=== PATIENT | female | born 1995 | race Caucasian/White ===

== ENCOUNTER 2016-11-25 07:54 | Emergency (ER) | payer OTHER ==
--- NOTE | ~2016-11-25 | CR63 ---
[facility], [place]. [facility] A Service of [facility] & [facility] RADIOLOGY TEXT RESULTS PATIENT: AUGUSTINE CARIAS LOCATION: SED : 93 UNIT #: [id number] AGE: [address]: Gene Preciado MD SEX: F ORDER DR: [id number] [address] [address] [id number] E MR#: [id number] Acc #: [id number] NAME: AUGUSTINE CARIAS : 1995 SEX: F STUDY DATE/TIME: 11/25/2016 9:20 UNIT: SED ROOM: STUDY DESCRIPTION: CR Chest 2 View Attending Physician: Gene Preciado M.D. Ordering Physician: Gene Preciado M.D. Primary Care Physician: Primary Care Physician No MEDICAL IMAGING REPORT This report is preliminary unless electronic signature is present. EXAM PA and lateral chest radiograph. HISTORY Cough and congestion for 10 days. FINDINGS PA and lateral views are obtained. The cardiovascular configuration of the chest is normal and the lungs are clear. CONCLUSION Negative chest. No active disease and no change from 03/03/2009. Dictated by... Isael Francisco M.D. THIS IS AN ELECTRONICALLY VERIFIED REPORT Isael Francisco M.D. at 11/25/2016 4:45 PM Jessica TD: 11/25/2016 13:20 JOB #: [id number] MEDICAL IMAGING REPORT
[~2016-11-25 07:54] MED LIST: ALBUTEROL INHALER INH; AUGMENTIN875 MG PO; CELEXA10 MG; FLUTICASONE SPRAY; LAMICTAL PO; LAMICTAL25 M1; LITHIUM CARBON450 MG PO; MOTRIN600 M1 PO; PAXIL10 MG PO; TYLENOL #3 PO; WELLBUTRIN PO
[2016-11-25 08:21] LABS: INFLUENZA A NEG (NEG); INFLUENZA B NEG (NEG)
[2017-04-14] MEDS ORDERED: NO MEDICATIONS (13:08)
[2017-04-17] MEDS ORDERED: OMEPRAZOLE20 M2 PO (14:24)
[2017-04-17] MEDS ORDERED: LOMOTIL WHITE2.5 M1 PO (14:25)
== END 2016-11-25 10:00 | disposition home or self-care (01) ==
LOC: SED 07:54
PROVIDERS: Emergency Medicine
DX: J20.9 Acute bronchitis, unspecified (principal); J01.10 Acute frontal sinusitis, unspecified; J01.00 Acute maxillary sinusitis, unspecified; J44.9 Chronic obstructive pulmonary disease, unspecified; F17.210 Nicotine dependence, cigarettes, uncomplicated
CPT/HCPCS: 71020; 87651; 87804; 94640; 99283

== ENCOUNTER 2017-01-03 17:18 | Emergency (ER) | payer OTHER ==
[2017-04-14] MEDS ORDERED: NO MEDICATIONS (13:08)
[2017-04-17] MEDS ORDERED: OMEPRAZOLE20 M2 PO (14:24)
[2017-04-17] MEDS ORDERED: LOMOTIL WHITE2.5 M1 PO (14:25)
== END 2017-01-03 17:45 | disposition home or self-care (01) ==
LOC: SED 17:18
DX: S29.012A Strain of muscle and tendon of back wall of thorax, initial encounter (principal); F17.210 Nicotine dependence, cigarettes, uncomplicated; F31.9 Bipolar disorder, unspecified; Z79.899 Other long term (current) drug therapy; X58.XXXA Exposure to other specified factors, initial encounter; Y92.9 Unspecified place or not applicable
CPT/HCPCS: 99283

== ENCOUNTER 2017-01-07 00:54 | Emergency (ER) | payer OTHER ==
--- NOTE | ~2017-01-07 | CR4 ---
[facility]. [facility] A Service of [facility] & [facility] RADIOLOGY TEXT RESULTS PATIENT: AUGUSTINE CARIAS LOCATION: SED : 93 UNIT #: [id number] AGE: [address]: Beverley Cabrera MD SEX: F ORDER DR: [id number] [address] [address] [id number] E MR#: [id number] Acc #: [id number] NAME: AUGUSTINE CARIAS : 1995 SEX: F STUDY DATE/TIME: 01/07/2017 2:23 UNIT: SED ROOM: STUDY DESCRIPTION: CR Abdomen Flat Upright or Dec Attending Physician: Beverley Cabrrea M.D. Ordering Physician: Beverley Cabrera M.D. Primary Care Physician: No Primary Care Physician MEDICAL IMAGING REPORT This report is preliminary unless electronic signature is present. EXAM Abdomen flat and upright INDICATIONS Abdominal pain starting 2 days ago. A flat and upright view of the abdomen were obtained. The bowel gas pattern is normal. The bones are unremarkable. There is no free air. IMPRESSION Normal flat and upright abdomen Dictated by... Gene Kim M.D. THIS IS AN ELECTRONICALLY VERIFIED REPORT Gene Kim M.D. at 01/08/2017 12:28 AM ZAYRA/sesar TD: 01/07/2017 22:54 JOB #: [id number] MEDICAL IMAGING REPORT Page 1 of 1
[2017-01-07 01:09] LABS: BASOPHIL# 0.1 X10e3 (0-0.3); BASOPHIL% 0.8 % (0-2.5); EOSINOPHIL# 0.3 X10e3 (0-0.7); EOSINOPHIL% 3.5 % (0.0-7.0); HEMATOCRIT 36.2 % (35.0-45.0); HEMOGLOBIN 12.4 gm/dL (12.0-16.0); LYMPHOCYTE# 3.7 X10e3 (1.0-3.5); LYMPHOCYTE% 37.1 % (17.0-45.0); MEAN CELL VOLUME 90.8 FL (83-96); MEAN CORPUSCULAR HEMOGLOBIN 31.1 PG (28-34); MEAN CORPUSCULAR HGB CONC 34.2 g/dL (30-36); MEAN PLATELET VOLUME 7.1 FL (6.5-11.5); MONOCYTE% 10.4 % (3.0-12.0); NEUTROPHIL# 4.8 X10e3 (1.5-7.1); NEUTROPHIL% 48.2 % (40-75); PLATELET COUNT 337 X10e3 (140-420); RED BLOOD COUNT 3.99 X10e (3.90-5.30); RED CELL DISTRIBUTION WIDTH 14.3 % (11.0-15.5); WHITE BLOOD COUNT 9.9 X10e3 (4.0-10.5)
[2017-01-07 01:11] LABS: DIFF IND NO
[2017-01-07 01:12] LABS: URINE SOURCE CLEAN CATCH
[2017-01-07 01:14] LABS: URINE APPEARANCE CLEAR; URINE BILIRUBIN NEG (NEG); URINE BLOOD NEG (NEG); URINE COLOR YELLOW; URINE GLUCOSE NEG (NORM); URINE KETONE NEG (NEG); URINE LEUKOCYTE ESTERASE NEG (NEG); URINE NITRATE NEG (NEG); URINE PH 5.5 (5-8); URINE PROTEIN NEG (NEG); URINE SPECIFIC GRAVITY 1.025 (1.003-1.035); URINE UROBILINOGEN 0.2 MG/DL (NORM)
[2017-01-07 01:16] LABS: MICRO INDICATED? NO
[2017-01-07 01:30] LABS: ALBUMIN SERUM 3.7 g/dL (3.5-5.0); ALKALINE PHOSPHATASE 61 U/L (32-92); ALT (SGPT) 11 U/L (10-40); AST (SGOT) 14 U/L (10-42); BILIRUBIN, DIRECT <0.1 mg/dL (0.0-0.2); BILIRUBIN,INDIRECT 0.3 mg/dL (0.0-0.9); BILIRUBIN,TOTAL 0.4 mg/dL (0.2-2.0); BLOOD UREA NITROGEN 7 mg/dL (9-23); BUN/CREATININE RATIO 11.66; CALCIUM SERUM 8.5 mg/dL (8.4-10.2); CARBON DIOXIDE 23 mmol/L (22-31); CHLORIDE 109 mmol/L (100-111); CREATININE SERUM 0.6 mg/dL (0.6-1.4); GLOM FILT RATE Estimated 128.5 mL/min (>60); GLUCOSE FASTING 102 mg/dL (70-110); LIPASE 29 U/L (22-51); POTASSIUM 3.4 mmol/L (3.5-5.1); PROTEIN TOTAL SERUM 6.3 g/dL (6.0-8.3); SODIUM 138 mmol/L (135-145)
[2017-04-14] MEDS ORDERED: NO MEDICATIONS (13:08)
[2017-04-17] MEDS ORDERED: OMEPRAZOLE20 M2 PO (14:24)
[2017-04-17] MEDS ORDERED: LOMOTIL WHITE2.5 M1 PO (14:25)
== END 2017-01-07 03:20 | disposition home or self-care (01) ==
LOC: SED 00:54
PROVIDERS: Emergency Medicine
DX: K29.70 Gastritis, unspecified, without bleeding (principal); F31.9 Bipolar disorder, unspecified; F17.210 Nicotine dependence, cigarettes, uncomplicated; E07.9 Disorder of thyroid, unspecified
CPT/HCPCS: 36415; 74020; 80048; 80076; 81003; 83690; 84703; 85025; 99284

== ENCOUNTER 2017-01-17 16:27 | Emergency (ER) | payer OTHER ==
[2017-04-14] MEDS ORDERED: NO MEDICATIONS (13:08)
[2017-04-17] MEDS ORDERED: OMEPRAZOLE20 M2 PO (14:24)
[2017-04-17] MEDS ORDERED: LOMOTIL WHITE2.5 M1 PO (14:25)
== END 2017-01-17 16:53 | disposition home or self-care (01) ==
LOC: SED 16:27
DX: L03.116 Cellulitis of left lower limb (principal); F17.210 Nicotine dependence, cigarettes, uncomplicated; F31.9 Bipolar disorder, unspecified
CPT/HCPCS: 99282

== ENCOUNTER → 2017-04-17 | Day surgery (SDC) | payer OTHER ==
[~2017-04-17] MED LIST changes: +LOMOTIL WHITE2.5 M1 PO; +NO MEDICATIONS; +OMEPRAZOLE20 M2 PO
--- NOTE | ~2017-04-17 | OR ---
Unit #: [id number] #: [id number] Patient: AUGUSTINE CARIAS [id number] [address] [address] [id number] O MR#: [id number] NAME: AUGUSTINE CARIAS ROOM: Date of Procedure: 04/17/2017 Admission Date: 04/17/2017 Surgeon: Gabriel Medrano M.D. : 1995 Attending Physician: Gabriel Medrano M.D. Primary Care Physician: Mark Armas M.D. OPERATIVE REPORT PRIMARY CARE PHYSICIAN Mark Armas M.D. PREOPERATIVE DIAGNOSES Dyspepsia and epigastric pain as well as chronic non-bloody watery diarrhea. PROCEDURES PERFORMED Upper gastrointestinal endoscopy with biopsy as well as colonoscopy with biopsies. POSTOPERATIVE DIAGNOSES For upper endoscopy: 1. The patient has grade 1 to 2 erosive distal esophagitis, otherwise examination was normal up to third part of duodenum. Biopsy was obtained from the antrum for CLOtest. In addition, biopsies were also obtained from deep descending duodenal folds to look for any evidence of partial villous atrophy or celiac disease. For colonoscopy: 1. Completely normal examination up to cecum and terminal ileum. The quality of the prep was excellent. Multiple random colonic biopsies were obtained from throughout the colon to rule out microscopic or collagenous colitis. RECOMMENDATIONS 1. Omeprazole 40 mg p.o. daily. 2. P.r.n. Lomotil 2.5 mg. 3. Follow up the results of biopsies. The patient will be followed up in the office in 3 months' time. SEDATION USED MAC. DESCRIPTION OF PROCEDURE Following detailed explanation of the potential risks and complications of upper endoscopy and a colonoscopy, namely perforation, bleeding, and complications related to sedation, the patient was brought to GI lab and laid in the left lateral decubitus position. Lubricated tip of the Olympus video upper endoscope was passed through the bite block into the proximal esophagus under direct vision. The entire esophageal mucosa was examined and the patient was noted to have grade 1 to 2 distal erosive esophagitis. The scope was then advanced into the gastric cavity and the Unit #: [id number] #: [id number] Patient: AUGUSTINE CARIAS latter was insufflated. Mucosa of the fundus, body, and antrum was examined and appeared unremarkable. Pylorus was intubated with visualization of the normal duodenal bulb and second and third part of the duodenum. Biopsies were obtained from the deep descending duodenal folds to look for any evidence of partial villous atrophy or celiac disease. Upon withdrawal and retroflexion, incisura, cardia, and greater curve were examined and biopsy was obtained from the antrum for CLOtest. The scope was then withdrawn into the distal esophagus. The entire esophageal mucosa was examined all the way up to pharynx. No additional findings noted. The examination table was then turned by 180 degrees and the patient was positioned for a colonoscopy. A digital rectal examination was performed, which was normal. Lubricated tip of the Olympus video colonoscope was inserted through the anus and advanced under direct vision. The scope was advanced and passed up to sigmoid into descending colon. No diverticula were seen in this area. The scope tip was then navigated all the way up to cecum with visualization of the ileocecal valve and the appendiceal orifice. Preparation was excellent with good visualization and photodocumentation was obtained. Last several inches of the terminal ileum were also visualized after intubation of the ileocecal valve and appeared normal. Successive segments of the colonic mucosa were examined upon withdrawal and appeared unremarkable. There being no polyps, mass lesions, AVMs, or diverticula. The patient did not have any hemorrhoids at anal verge. The scope was then withdrawn. The patient returned to the recovery area. The patient tolerated the procedure without any postprocedure complications. Dictated by... Richy Gonzalez/alana TD: 04/19/2017 06:36 JOB #: [id number] OPERATIVE REPORT Page 1 of 1 X Gabriel Medrano MD X PROCEDURE OPERATIVE NOTE
== END | disposition home or self-care (01) ==
LOC: COPS 11:40
DX: K20.8 Other esophagitis (principal); R19.7 Diarrhea, unspecified; K21.9 Gastro-esophageal reflux disease without esophagitis; F17.210 Nicotine dependence, cigarettes, uncomplicated; Z98.890 Other specified postprocedural states
CPT/HCPCS: 84703; 87077; 88305; J2250

== ENCOUNTER 2017-04-27 17:48 | Inpatient (IN) | payer OTHER ==
[~2017-04-27] VITALS: Ht 160 cm; Wt 70.3 kg
--- NOTE | ~2017-04-27 | PN ---
Unit #: [id number] #: [id number] Patient: AUGUSTINE CONDON [id number] [facility] [address] [place] [address] [id number] I MR#: [id number] NAME: AUGUSTINE CONDON ROOM: [facility] Age: 21 Sex: F Admission Date: 04/28/2017 : 1995 Attending Physician: Manjit Randhawa M.D. Admitting Physician: Manjit Randhawa M.D. Primary Care Physician: Richy Blackburn PROGRESS NOTES DATE 04/30/2017 DISCUSSION Ms. Condon is a 21-year-old white female who was seen today and chart was reviewed and case was discussed with the staff. She has been doing fairly well and has been calm and cooperative and rather seclusive to herself and has been taking medications and tolerating them fairly well with no reported side effects. MENTAL STATUS EXAMINATION Young white female who was casually dressed with fair personal hygiene, appears to be in no acute distress or discomfort. She was awake and alert with intact orientation. Her mood was anxious with congruent affect. She denies any suicidal or homicidal ideations. Her insight and judgement remains slightly impaired. TREATMENT PLAN We will continue her on her current medications and treatment protocol and we will consider doing discharge planning tomorrow. Dictated by... Richy Boone/suhas TD: 05/02/2017 04:53 JOB #: [id number] PEARADHA PROGRESS NOTES Page 1 of 1 X Manjit Randhawa MD X PROGRESS NOTE
--- NOTE | ~2017-04-27 | HP ---
Unit #: [id number] #: [id number] Patient: AUGUSTINE CARIAS [id number] [place] [address] [id number] MR#: [id number] NAME: AUGUSTINE CARIAS ROOM: P262 Age: 21 Sex: F Admission Date: 04/28/2017 : 1995 Attending Physician: Manjit Randhawa M.D. Admitting Physician: Manjit Randhawa M.D. Primary Care Physician: Mark Armas M.D. HISTORY AND PHYSICAL HISTORY OF PRESENT ILLNESS Augustine is a 21 year old admitted to [address] [place] [address] with depression and verbalizing wanting to hurt herself. PAST MEDICAL HISTORY Irritable bowel syndrome. PAST SURGICAL HISTORY Adenoidectomy. ALLERGIES No known drug allergies. SOCIAL HISTORY Smokes 1 pack per day. Drinks alcohol on occasion. Denies illicit drug use. FAMILY HISTORY Medically noncontributory. REVIEW OF SYSTEMS CONSTITUTIONAL: No fever or chills. HEENT: Denies any sore throat, ear pain or runny nose. CARDIOVASCULAR: Denies chest pain, irregular heart rhythm or palpitations. CHEST: Denies shortness of breath or cough. No hemoptysis. GASTROINTESTINAL: Denies nausea, vomiting, diarrhea or chronic constipation. ENDOCRINE: Denies history of increased thirst or urination. No recent significant weight loss or gain. GENITOURINARY: Denies dysuria, frequency, or hematuria. SKIN: Denies any rashes. HEMATOLOGIC: Denies history of increased bleeding or bruising. MUSCULOSKELETAL: Denies any hot, swollen joints. No generalized muscle pain. NEUROLOGIC: Denies problems with vision or speech. No frequent, severe headaches. No numbness, tingling or weakness in any extremities. Denies loss of bladder or bowel control. CURRENT MEDICATIONS 1. Depakote 250 mg q.a.m., 500 mg q.h.s. 2. Risperdal 1 mg b.i.d. 3. Nicotine patch 14 mg daily. 4. Milk of Magnesia p.r.n. 5. Maalox p.r.n. Unit #: [id number] #: [id number] Patient: AUGUSTINE CARIAS 6. Tylenol p.r.n. PHYSICAL EXAMINATION GENERAL: Alert, well-nourished, in no apparent distress. VITAL SIGNS: Blood pressure 113/58, heart rate 80, respirations 16, temperature 98.6. WEIGHT: 155. HEIGHT: 5 feet 3 inches. SKIN: Warm and dry without rash or lesion. HEENT: Normocephalic. TMs not viewed. Oral and nasal passages clear. Conjunctivae clear. PERRLA. EOMs intact. NECK: Supple without lymphadenopathy or thyromegaly. HEART: Regular rate and rhythm without murmur. LUNGS: Clear. ABDOMEN: Soft, nontender. : Not done. EXTREMITIES: No evidence of cyanosis, clubbing or edema. Moves all without focal deficit. NEUROLOGICAL: Grossly within normal limits. Cranial Nerves: II: Visual black are intact. III, IV AND : Extraocular movements are intact. Pupils are equal, round and reactive to light. V: Facial sensation is grossly normal. VII: Facial movements and expression are normal. VIII: Auditory acuity grossly intact. IX, X: Uvula is midline. Phonation is normal. XI: Patient shrugs shoulders and turns head normally. XII: Tongue protrudes in the midline. Sensory and Motor Function: Sensory and motor sensation is grossly normal. Motor: moves all extremities well. Coordination: Gait is normal. Deep Tendon Reflexes: Intact. IMPRESSION Psychiatric admission. RECOMMENDATIONS PSYCHIATRIC: Per psychiatrist. MEDICAL: See no contraindication to participate in facility's activities. MEDICAL PROGNOSIS Good. MEDICAL CONDITION Stable. Dictated by... Francine Jama P.A.-C. for Richy Araya/hira TD: 04/28/2017 20:56 JOB #: [id number] Unit #: [id number] #: [id number] Patient: AUGUSTINE CARIAS HISTORY AND PHYSICAL Page 1 of 1 X Francine Jama HISTORY AND PHYSICAL
--- NOTE | ~2017-04-27 | PN ---
Unit #: [id number] #: [id number] Patient: AUGUSTINE CONDON [id number] [facility] [address] [place] [address] [id number] MR#: [id number] NAME: AUGUSTINE CONDON ROOM: [facility] Age: 21 Sex: F Admission Date: 04/28/2017 : 1995 Attending Physician: Manjit Randhawa M.D. Admitting Physician: Manjit Randhawa M.D. Primary Care Physician: Richy Blackburn PROGRESS NOTES DATE 04/29/2017 DISCUSSION Ms. Condon is a 21-year-old white female who was seen today and chart was reviewed and case was discussed with the staff. She has been anxious, withdrawn and rather seclusive to herself. Meanwhile, she Meanwhile, she has been taking medications and tolerating them fairly well with no reported side-effects. MENTAL STATUS EXAMINATION Young white female who is casually dressed with fair personal hygiene, appears to be in no acute distress or discomfort. She was awake and alert on interaction with intact orientation. Her mood was anxious with congruent affect. Her speech was slow and goal-directed. She denies any suicidal or homicidal ideations. . Her insight and judgement remains slightly impaired. TREATMENT PLAN 1. We will continue her on her current medications and treatment protocol. We will monitor her response to the medication and make further adjustments as needed. 2. We will continue to follow up. Dictated by... Richy Boone/suhas TD: 05/01/2017 03:49 JOB #: [id number] Unit #: [id number] #: [id number] Patient: AUGUSTINE CONDONRADHA PROGRESS NOTES Page 1 of 1 X Manjit Randhawa MD X PROGRESS NOTE
--- NOTE | ~2017-04-27 | PA ---
Unit #: [id number] #: [id number] [facility]: [facility]DON [id number] [facility] [address] [place] [address] [id number] I MR#: [id number] NAME: AUGUSTINE CONDON ROOM: P262 Age: 21 Sex: F Admission Date: 04/28/2017 : 1995 Date of Assessment: 04/28/2017 Attending Physician: Manjit Randhawa M.D. Admitting Physician: Manjit Randhawa M.D. Primary Care Physician: Mark Armas M.D. PSYCHIATRIC ASSESSMENT DATE OF SERVICE 04/28/2017. IDENTIFYING DATA Ms. Condon is a 21-year-old, single, white female, who is a resident of [place], [place], and was self-referred to the hospital, who was [facility], [facility] CHIEF COMPLAINT "I always have a general plan of suicide. I don't feel safe." HISTORY OF PRESENT ILLNESS Ms. Condon is a 21-year-old white female with a history of mood disorder, who was self referred to the hospital, reporting an increase in depression and suicidal ideation as she stated "I always have a general plan. I do not feel safe. I know I hate myself, part of me wants to ." The patient reports that she has been significantly distressed and was observed rubbing her legs with her forearm constantly and compulsively and became upset during assessment demanding to know if people outside could see her and was not sure if she was hearing voices or if it was her own thoughts and reported to have night terrors and was acutely psychotic with bizarre behavior, agitation, irritability, anxiety and difficulty remembering things and was seen to be a significant threat to herself and as such, recommendation for inpatient level of care for safety and stabilization was made and the patient was transferred to us. SUBSTANCE ABUSE HISTORY The patient reports regular use of cannabis and she reports that she has been using 2 blunts on a daily basis and the last use being yesterday. PAST PSYCHIATRIC HISTORY The patient has had a history of multiple inpatient psychiatric hospitalizations at [facility], where she has been diagnosed with bipolar disorder and currently she is not taking any treatment program, is not seeing a psychiatrist, and is not taking any psychotropic medications. PAST MEDICAL HISTORY Irritable bowel syndrome. ALLERGIES No known medication allergies. Unit #: [id number] #: [id number] Patient: AUGUSTINE CONDON CURRENT MEDICATIONS None. PERSONAL AND SOCIAL HISTORY A 21-year-old white female, who reports that she lives at home with her 3 sisters, an uncle and niece and has fairly decent social support system. MENTAL STATUS EXAMINATION Young white female, who was casually dressed with fair personal hygiene, appears to be in no acute distress or discomfort. She was awake and alert on interaction with intact orientation to time, place, and person. Her mood was anxious and depressed with a congruent affect. Her speech was slow and restricted in content. Her thought processes were disorganized with some looseness of associations and flight of ideas. Her insight and judgment remain significantly impaired. DIAGNOSTIC IMPRESSION Psychiatric: Bipolar disorder, most recent episode depressed, recurrent, moderate, with psychosis. Medical: None. Stressors: Moderate psychosocial stressors. TREATMENT PLAN 1. The patient has presented with a history of mood disorder and cannabis abuse, and has been decompensating and will need inpatient hospitalization for safety and stabilization. We will start her back on her home medications. We will adjust the medications and monitor response. 2. Supportive therapy was provided to the patient. 3. Safe, structured, and nourishing environment will be reported. ESTIMATED LENGTH OF STAY 5 to 7 days. ABILITY TO HELP SELF Limited. WILLINGNESS TO HELP SELF The patient appears to be willing to help self. STRENGTHS 1. Communicative. 2. Cooperative. PROBLEMS 1. Chronic dysphoric symptoms. 2. Poor social support system. DISCHARGE CRITERIA This will be contingent upon the patient's ability to show resolution of her depression and anxiety and her ability to stay safe to herself, particularly after discharge from the hospital. Dictated by... Manjit Randhawa M.D. Unit #: [id number] #: [id number] Patient: AUGUSTINE CONDON IAA/modl TD: 04/28/2017 08:03 JOB #: [id number] PSYCHIATRIC ASSESSMENT Page 1 of 1 X Manjit Randhawa MD X PSYCHIATRIC ASSESSMENT
--- NOTE | ~2017-04-27 | DS ---
Unit #: [id number] #: [id number] Patient: AUGUSTINE CARIAS [id number] [facility] [address] [place] [address] [id number] I MR#: [id number] NAME: AUGUSTINE CARIAS ROOM: [facility] Age: 21 Sex: F Admission Date: 04/28/2017 : 1995 Discharge Date: 05/01/2017 Attending Physician: Manjit Randhawa M.D. Primary Care Physician: Mark Armas M.D. DISCHARGE SUMMARY REASON FOR ADMISSION Hearing voices. DIAGNOSTIC STUDIES LABORATORY RESULTS: Urine drug screen was positive for marijuana. HOSPITAL COURSE The patient was admitted to the inpatient unit on 04/28/2017 and discharged on 05/01/2017. The patient was treated on the inpatient unit with group therapy, individual therapy, and chemical dependency group. The patient was responsive to treatment. Subsequently, the patient was discharged with a plan to follow up in outpatient program. DISCHARGE MEDICATIONS Risperdal 1 mg b.i.d. for mood stabilization and Depakote 500 mg at bedtime and 250 mg in the morning for mood stabilization. DISCHARGE DIAGNOSES Psychiatric: Bipolar mood disorder, recurrent, severe, depressed, F31.9. Medical diagnosis: None. Stressors: Psychosocial stressors. DISCHARGE INSTRUCTIONS The patient to follow up in outpatient clinic as per social studies department chair. CONDITION ON DISCHARGE The patient was pleasant and cooperative. Denied any psychotic symptom or any suicidal ideation. PROGNOSIS Guarded. DIET AND ACTIVITY As tolerated. Dictated by... Richy Cerda/alana Unit #: [id number] #: [id number] Patient: AUGUSTINE CARIAS TD: 05/03/2017 15:49 JOB #: [id number] DISCHARGE SUMMARY Page 1 of 1 X William Bonilla MD X DISCHARGE SUMMARY
[2017-04-28 09:50] LABS: URINE APPEARANCE CLEAR; URINE BILIRUBIN NEG (NEG); URINE BLOOD NEG (NEG); URINE COLOR YELLOW; URINE GLUCOSE NEG (NEG); URINE KETONE 2+ (NEG); URINE LEUKOCYTE ESTERASE NEG (NEG); URINE NITRATE NEG (NEG); URINE PH 6.5 (5-8); URINE PROTEIN NEG (NEG); URINE SPECIFIC GRAVITY 1.017 (1.003-1.035); URINE UROBILINOGEN 0.2 MG/DL (NEG)
[2017-04-28 09:57] LABS: BASOPHIL# 0.1 X10e3 (0-0.3); BASOPHIL% 0.5 % (0-2.5); DIFF IND YES; EOSINOPHIL# 0.3 X10e3 (0-0.7); EOSINOPHIL% 2.2 % (0.0-7.0); HEMOGLOBIN 13.5 gm/dL (12.0-16.0); LYMPHOCYTE# 4.6 X10e3 (1.0-3.5); LYMPHOCYTE% 29.5 % (17.0-45.0); MEAN CELL VOLUME 94.1 FL (83-96); MEAN CORPUSCULAR HGB CONC 32.9 g/dL (30-36); MEAN PLATELET VOLUME 8.1 FL (6.5-11.5); MONOCYTE# 0.9 X10e3 (0-1.0); NEUTROPHIL# 9.7 X10e3 (1.5-7.1); NEUTROPHIL% 61.8 % (40-75); PLATELET COUNT 431 X10e3 (140-420); RED BLOOD COUNT 4.36 X10e (3.90-5.30); RED CELL DISTRIBUTION WIDTH 13.5 % (11.0-15.5); WHITE BLOOD COUNT 15.6 X10e3 (4.0-10.5)
[2017-04-28 10:11] LABS: AMPHETAMINE NEG (NEG); BARBITURATES NEG (NEG); BENZODIAZEPINES NEG (NEG); COCAINE NEG (NEG); MARIJUANA POS (NEG); OPIATES NEG (NEG); TRICYCLIC ANTIDEPRESSANTS NEG (NEG); U METHADONE NEG (NEG)
[2017-04-28 10:19] LABS: PLATELET ESTIMATE NORMAL (NORMAL); RBC NORMAL YES
[2017-04-28 10:58] LABS: ALBUMIN SERUM 4.5 g/dL (3.5-5.0); CALCIUM SERUM 9.7 mg/dL (8.4-10.2); CREATININE SERUM 0.5 mg/dL (0.6-1.4); GLOM FILT RATE Estimated 136.4 mL/min (>60); POTASSIUM 4.2 mmol/L (3.5-5.1); PROTEIN TOTAL SERUM 7.4 g/dL (6.0-8.3)
== END 2017-05-01 11:10 | disposition home or self-care (01) | DRG 885 ==
LOC: P2L 04-28 00:55
PROVIDERS: Psychiatry & Neurology Psychiatry
DX: F31.5 Bipolar disorder, current episode depressed, severe, with psychotic features (principal); F17.210 Nicotine dependence, cigarettes, uncomplicated
CPT/HCPCS: 80053; 80307; 81003; 84703; 85025